=== PATIENT | female | born 1980 | race African-American/Black ===

== ENCOUNTER 2017-04-14 18:58 | Emergency (ER) | payer MEDICAID, OTHER ==
[~2017-04-14] VITALS: Ht 172.7 cm; Wt 58.0 kg
[~2017-04-14 18:58] MED LIST: MEDR150P IM
[2017-04-14 18:59] VITALS: BP 130/72; PULSE 84; RESP 14; TEMP 98.4; O2SAT 99
[2017-04-14 19:37] VITALS: BP 110/73; PULSE 60; RESP 14; O2SAT 100
--- NOTE | 2017-04-14 19:53 | PD ---
HPI Chief Complaint: Headache Time Seen by Provider: 19:19 Travel History International Travel<30 days: No Contact w/Intl Traveler<30days: No Traveled to known affect area: No History of Present Illness HPI Patient is a 36-year-old female presents emergency department occipital pain radiated bitemporal region for the past 4 days. Patient states she's never had headaches like this before. States the pain is moderate in severity, also associated with some mild blurred vision. She tried Tylenol as well as Motrin at home without significant relief. Denies IV drug abuse, she did give up smoking 2 weeks ago. No fevers no neck pain no nuchal rigidity. Severity is moderate, radiation as above, context as above associated signs symptoms as above. PFSH Past Medical History GERD: Yes ?: Not LMP: 04/11/17 : 5 Para: 4 Miscarriage: 1 Past Surgical History Surgical History: No Previous Surgery Social History Alcohol Use: No Tobacco Use: Yes Substance Use: No Allergies-Medications (Allergen,Severity, Reaction): Coded Allergies: No Known Allergies (Verified , 02/10/14) Reported Meds & Prescriptions Reported Meds & Active Scripts Active No Active Prescriptions or Reported Medications Review of Systems Except as stated in HPI: all other systems reviewed are Neg Physical Exam Narrative GENERAL: Well-developed well-nourished, no obvious distress. SKIN: Focused skin assessment warm/dry. HEAD: Atraumatic. Normocephalic. EYES: Pupils equal and round. No scleral icterus. No injection or drainage. ENT: No nasal bleeding or discharge. Mucous membranes pink and moist. NECK: Trachea midline. No JVD. CARDIOVASCULAR: Regular rate and rhythm. No murmur appreciated. RESPIRATORY: No accessory muscle use. Clear to auscultation. Breath sounds equal bilaterally. GASTROINTESTINAL: Abdomen soft, non-tender, nondistended. Hepatic and splenic margins not palpable. MUSCULOSKELETAL: No obvious deformities. No clubbing. No cyanosis. No edema. NEUROLOGICAL: Awake and alert. Cranial nerves II through XII are grossly intact and nonfocal, 5 out of 5 strength in all 4 extremities, cerebellar testing negative, extraocular movements normal. And relates with an even narrow based gait. Kernig's and Brudzinski signs negative. PSYCHIATRIC: Appropriate mood and affect; insight and judgment normal. Data Data Last Documented VS Vital Signs Date Time Temp Pulse Resp B/P (MAP) Pulse Ox O2 Delivery O2 Flow Rate FiO2 04/14/17 22:12 04/14/17 19:37 60 14 100 04/14/17 19:30 Room Air 04/14/17 18:59 98.4 Orders Orders Urinalysis - C+S If Indicated (04/14/17 19:20) Ed Urine Pregnancytest Poc (04/14/17 19:20) Ct Brain W/O Iv Contrast(Rout) (04/14/17 ) Ketorolac Inj (Toradol Inj) (04/14/17 20:00) Ed Discharge Order (04/14/17 21:00) Labs Laboratory Tests Test 04/14/17 19:40 Urine Color YELLOW Urine Turbidity CLEAR Urine pH 6.0 Urine Specific [place] 1.025 Urine Protein TRACE mg/dL Urine Glucose (UA) NEG mg/dL Urine Ketones NEG mg/dL Urine Occult Blood TRACE Urine Nitrite NEG Urine Bilirubin NEG Urine Urobilinogen 2.0 MG/DL Urine Leukocyte Esterase NEG Urine WBC LESS THAN 1 /hpf Urine Squamous Epithelial Cells 1 /hpf Urine Mucus FEW /lpf Microscopic Urinalysis Comment CULT NOT INDICATED MDM Medical Decision Making Medical Screen Exam Complete: Yes Emergency Medical Condition: Yes Differential Diagnosis Migraine, cluster, subarachnoid hemorrhage highly unlikely, Narrative Course Patient presents emergency Department with benign presentation of a headache, Toradol was given and the patient had some relief but not complete relief, she states the pain is bearable she just wants to make sure there was nothing more severe going on, she's not had headaches like this before, CAT scan of her head shows no acute pathology. No thunderclap presentation of nuchal rigidity and therefore no indication for LP at this time. Discussed symptomatic management follow-up with the [facility] for primary care physician and discussed return to ED criteria. She stable for discharge. She was offered stronger pain medicine but is taking the bus home and after discussion she would not like to be sedate for the drive home. Diagnosis Primary Impression: Headache Qualified Codes: R51 - Headache Referrals: [facility] Scripts No Active Prescriptions or Reported Meds Disposition: DISCHARGE HOME Condition: Stable Rigoberto Richter MD Apr 14, 2017 19:53
[2017-04-14 19:57] LABS: BLOOD, URINE TRACE (NEG); COMMENT (UR) CULT NOT INDICATED; CULTURE IF INDICATED CULT NOT INDICATED; GLUCOSE,URINE NEG (NEG); KETONE, URINE NEG (NEG); MUCUS URINE FEW /lpf (OCC); NITRITE,URINE NEG (NEG); SQUAMOUS EPITHELIAL CELL URINE 1 /hpf (0-5); URINE COLOR YELLOW (YELLW/STRAW)
[2017-04-14] MEDS ORDERED: KETOROLAC TROMETHAMINE 60 MG/2 ML (IM) VIAL IM ONE (20:00)
--- NOTE | 2017-04-14 20:16 | RADRPT ---
EXAM DATE/TIME: 04/14/2017 19:54 [facility] COMPARISON: No previous studies available for comparison. INDICATIONS : Headaches for four days. RADIATION DOSE: 56.35 CTDIvol (mGy) MEDICAL HISTORY : GERD. SURGICAL HISTORY : None. ENCOUNTER: Initial ACUITY: 4 - 6 days PAIN SCALE: 9/10 LOCATION: Bilateral cranial TECHNIQUE: Multiple contiguous axial images were obtained of the head. Using automated exposure control and adj ustment of the mA and/or kV according to patient size, radiation dose was kept as low as reasonably a chievable to obtain optimal diagnostic quality images. DICOM format image data is available electro nically for review and comparison. FINDINGS: CEREBRUM: The ventricles are normal for age. No evidence of midline shift, mass lesion, hemorrhage or acute in farction. No extra-axial fluid collections are seen. POSTERIOR FOSSA: The cerebellum and brainstem are intact. The 4th ventricle is midline. The cerebellopontine angle i s unremarkable. EXTRACRANIAL: The visualized portion of the orbits is intact. SKULL: The calvaria is intact. No evidence of skull fracture. CONCLUSION: Negative noncontrast CT brain. Jaylon Sterling MD on April 14, 2017 at 20:14 Board Certified Radiologist. This report was verified electronically.
== END 2017-04-14 22:12 | disposition home or self-care (01) ==
LOC: NEPC 18:58
DX: R51 Headache (principal); H53.8 Other visual disturbances; K21.9 Gastro-esophageal reflux disease without esophagitis; Z72.0 Tobacco use
CPT/HCPCS: 70450; 81001; 84703; 96372; 99285; J1885

== ENCOUNTER → 2017-04-20 | Outpatient (CLI) | payer OTHER ==
--- NOTE | 2017-04-20 16:23 | RADRPT ---
EXAM DATE/TIME: 04/20/2017 14:26 [facility] COMPARISON: No previous studies available for comparison. INDICATIONS : Thyromegaly. MEDICAL HISTORY : Gastroesophageal reflux disease. Urinary tract infection. SURGICAL HISTORY : None. ENCOUNTER: Initial ACUITY: 4 - 6 months PAIN SCORE: 0/10 LOCATION: Bilateral neck MEASUREMENTS: RIGHT LOBE: 4.6 x 3.2 x 2.3 cm LEFT LOBE: 4.1 x 1.3 x 1.3 cm FINDINGS: RIGHT LOBE: There is a 4 cm mixed echogenicity mass occupying the majority of the right lobe of the thyroid. LEFT LOBE: Homogeneous echotexture without nodules or cysts. Vascularity is within normal limits. ISTHMUS: Normal in size without focal abnormality. CONCLUSION: 4 cm nodule in the right thyroid. This does appear amenable to ultrasound-guided aspiration biopsy if indicated Ady Cotter MD on April 20, 2017 at 16:19 Board Certified Radiologist. This report was verified electronically.
== END ==
LOC: HRAD 14:08
PROVIDERS: ATTEND Family Medicine
DX: E01.0 Iodine-deficiency related diffuse (endemic) goiter (principal)
CPT/HCPCS: 76536

== ENCOUNTER 2017-04-28 12:30 | Day surgery (SDC) | payer OTHER ==
[2017-04-28 13:12] VITALS: BP 117/72; PULSE 77; RESP 14; TEMP 97.7; O2SAT 100
[2017-04-28 13:45] VITALS: BP 121/86; PULSE 75; RESP 20; TEMP 97.3; O2SAT 100
[2017-04-28 13:48] VITALS: BP 112/74; PULSE 72; RESP 18; TEMP 97.8; O2SAT 100
[2017-04-28] MEDS ORDERED: LIDOCAINE HCL 1% 20 ML VIAL ONE (13:52)
[2017-04-28 14:03] VITALS: BP 121/70; PULSE 70; RESP 17; O2SAT 100
--- NOTE | 2017-04-28 15:42 | RADRPT ---
EXAM DATE/TIME: 04/28/2017 13:02 [facility] COMPARISON: No previous studies available for comparison. INDICATIONS : Right thyroid nodule. MEDICAL HISTORY : GERD. Vit. Deficiency. Anemia. Goiter. Fibroids. Migraines. SURGICAL HISTORY : None. ENCOUNTER: Initial ACUITY: 1 day PAIN SCORE: 3/10 LOCATION: Right neck ORGAN: Right thyroid lobe SPECIMENS: Three fine needle aspirate(s) submitted for pathologic evaluation. DEVICE: 22 gauge needle Post procedure scanning reveals no hematoma or other complication. The possibility does exist that the tissue obtained will be non-diagnostic. If the sample is non-amy gnostic a repeat biopsy or surgical biopsy may need to be performed. TECHNIQUE: 1. Ultrasound guidance for needle biopsy. 2. Needle biopsy. The risks, benefits and alternatives to the procedure were explained and verbal and written consent w as obtained. The site was prepped in sterile fashion. Full sterile technique was used, including ca p, mask, sterile gloves and gown and a large sterile sheet. Hand hygiene and 2% chlorhexidine and/or betadine/alcohol prep was utilized per protocol for cutaneous antisepsis. The skin and subcutaneous tissues were infiltrated with local anesthetic solution. Sterile gel and sterile probe cover were u tilized for ultrasound guidance. With the patient on the ultrasound table, images were obtained. A needle was advanced into the identified target and the number of specimens as above obtained and rodriguez bmitted for pathologic evaluation. The [employer]otech was in attendance and received the specimens at [facility]. The patient tolerated the procedure well and left the ultrasound suite in stable condition. CONCLUSION: Uncomplicated ultrasound guided needle biopsy. Av Sampson MD on April 28, 2017 at 15:31 Board Certified Radiologist. This report was verified electronically.
== END 2017-04-28 14:13 | disposition home or self-care (01) ==
LOC: HRAD 12:30 → HRIP 12:31 → HRAD 14:13
PROVIDERS: ATTEND Family Medicine
DX: E04.1 Nontoxic single thyroid nodule (principal); K21.9 Gastro-esophageal reflux disease without esophagitis; D64.9 Anemia, unspecified; G43.909 Migraine, unspecified, not intractable, without status migrainosus
CPT/HCPCS: 10022; 76942; 88172; 88173

== ENCOUNTER 2017-05-25 14:27 | Emergency (ER) | payer OTHER ==
[2017-05-25 14:29] VITALS: BP 125/60; PULSE 89; RESP 18; TEMP 97.8; O2SAT 100
--- NOTE | 2017-05-25 16:29 | PD ---
HPI Chief Complaint: Abdominal Pain Time Seen by Provider: 16:13 Travel History International Travel<30 days: No Contact w/Intl Traveler<30days: No Traveled to known affect area: No History of Present Illness HPI LOWER ABD PAIN, BLOATED SENSATION, ONSET 11AM TODAY, DENIES VAG BLEEDING/V/D/ ALL:DENIES PMHX:GERD PSHX: ENDOSCOPY LMP ? MAYBE MAY 10 PFSH Past Medical History GERD: Yes ?: Unknown : 5 Para: 4 Miscarriage: 1 Past Surgical History Surgical History: No Previous Surgery Social History Alcohol Use: No Tobacco Use: No Substance Use: No Allergies-Medications (Allergen,Severity, Reaction): Coded Allergies: No Known Allergies (Verified Adverse Reaction, Unknown, 05/25/17) Reported Meds & Prescriptions Reported Meds & Active Scripts Active No Active Prescriptions or Reported Medications Review of Systems Except as stated in HPI: all other systems reviewed are Neg General / Constitutional: No: Fever Eyes: No: Visual changes HENT: No: Headaches Cardiovascular: No: Chest Pain or Discomfort Respiratory: No: Shortness of Breath Gastrointestinal: Positive: Abdominal Pain Genitourinary: No: Dysuria Musculoskeletal: No: Pain Skin: No Rash Neurologic: No: Weakness Psychiatric: No: Depression Endocrine: No: Polydipsia Hematologic/Lymphatic: No: Easy Bruising Physical Exam Narrative GENERAL: SKIN: Warm and dry. HEAD: Atraumatic. Normocephalic. EYES: Pupils equal and round. No scleral icterus. No injection or drainage. ENT: No nasal bleeding or discharge. Mucous membranes pink and moist. NECK: Trachea midline. No JVD. CARDIOVASCULAR: Regular rate and rhythm. RESPIRATORY: No accessory muscle use. Clear to auscultation. Breath sounds equal bilaterally. GASTROINTESTINAL: Abdomen soft, non-tender, nondistended. MUSCULOSKELETAL: Extremities without clubbing, cyanosis, or edema. No obvious deformities. NEUROLOGICAL: Awake and alert. No obvious cranial nerve deficits. Motor grossly within normal limits. Five out of 5 muscle strength in the arms and legs. Normal speech. PSYCHIATRIC: Appropriate mood and affect; insight and judgment normal. Data Data Last Documented VS Vital Signs Date Time Temp Pulse Resp B/P (MAP) Pulse Ox O2 Delivery O2 Flow Rate FiO2 05/25/17 14:29 97.8 89 18 125/60 (81) 100 Room Air Orders Orders Urinalysis - C+S If Indicated (1/4/18 16:14) Ed Urine Pregnancytest Poc (05/25/17 16:14) Labs Laboratory Tests Test 05/25/17 16:25 Urine Color LIGHT-YELLOW Urine Turbidity CLEAR Urine pH 5.5 Urine Specific [place] 1.011 Urine Protein NEG mg/dL Urine Glucose (UA) NEG mg/dL Urine Ketones NEG mg/dL Urine Occult Blood NEG Urine Nitrite NEG Urine Bilirubin NEG Urine Urobilinogen LESS THAN 2.0 MG/DL Urine Leukocyte Esterase NEG Urine WBC LESS THAN 1 /hpf Urine Squamous Epithelial Cells 5 /hpf Urine Bacteria RARE /hpf Microscopic Urinalysis Comment CULT NOT INDICATED MDM Medical Decision Making Medical Screen Exam Complete: Yes Emergency Medical Condition: Yes Medical Record Reviewed: Yes Differential Diagnosis UTI V PREG RELATED Diagnosis Primary Impression: CLINICAL COLITIS Patient Instructions: Colitis (ED), General Instructions Scripts Tramadol (Ultram) 50 Mg Tab 50 MG PO Q4H Y for PAIN, #14 TAB 0 Refills Prov: Felipe Pratt MD 05/25/17 Metronidazole (Flagyl) 500 Mg Tab 500 MG PO TID for Infection for 5 Days, #15 TAB 0 Refills Prov: Felipe Pratt MD 05/25/17 Ciprofloxacin (Cipro) 500 Mg Tab 500 MG PO BID for Infection for 5 Days, #10 TAB 0 Refills Prov: Felipe Pratt MD 05/25/17 Disposition: 01 DISCHARGE HOME Condition: Stable Felipe Pratt MD May 25, 2017 16:29
[2017-05-25 17:20] LABS: BACTERIA, URINE RARE /hpf; BILIRUBIN, URINE NEG (NEG); BLOOD, URINE NEG (NEG); GLUCOSE,URINE NEG (NEG); KETONE, URINE NEG (NEG); NITRITE,URINE NEG (NEG); PH, URINE 5.5 (5.0-8.5); SQUAMOUS EPITHELIAL CELL URINE 5 /hpf (0-5); URINE COLOR LIGHT-YELLOW (YELLW/STRAW); URINE LEUKOCYTE ESTERASE NEG (NEG)
[2017-05-25] MEDS ORDERED: CIPR-9 PO (17:28)
[2017-05-25] MEDS ORDERED: TRAM50 PO (17:28)
[2017-05-25] MEDS ORDERED: METR-1 PO (17:28)
== END 2017-05-25 17:52 | disposition home or self-care (01) ==
LOC: NEPD 14:27
DX: K52.9 Noninfective gastroenteritis and colitis, unspecified (principal); K21.9 Gastro-esophageal reflux disease without esophagitis
CPT/HCPCS: 81001; 84703; 99284